=== PATIENT | male | born 1955 | race Asian ===

== ENCOUNTER → 2021-10-12 | Emergency (ER) | payer BC, OTHER ==
[~2021-10-12] VITALS: Ht 170.2 cm; Wt 63.5 kg
[~2021-10-12] MED LIST: MONT10TA22 PO
[2021-10-12 17:08] VITALS: BP_SYST 114
== END | disposition home or self-care (01) ==
LOC: SED 17:00
DX: R07.9 Chest pain, unspecified (principal); Z53.21 Procedure and treatment not carried out due to patient leaving prior to being seen by health care provider

== ENCOUNTER 2021-10-18 11:10 | Emergency (ER) | payer OTHER ==
[~2021-10-18] VITALS: Ht 170.2 cm; Wt 63.5 kg
[2021-10-18 11:16] VITALS: BP_SYST 127
--- NOTE | 2021-10-18 13:34 | NUR ---
Patient left without being seen.
== END 2021-10-18 13:34 | disposition left against medical advice (07) ==
LOC: SED 11:10
DX: R06.02 Shortness of breath (principal); Z53.21 Procedure and treatment not carried out due to patient leaving prior to being seen by health care provider

== ENCOUNTER 2022-05-07 22:15 | Emergency (ER) | payer OTHER, MEDICARE ==
[~2022-05-07] VITALS: Ht 170.2 cm; Wt 59.4 kg
[~2022-05-07 22:15] MED LIST changes: +MONT-47 PO; -MONT10TA22 PO
[2022-05-07 22:34] VITALS: BP_SYST 155
--- NOTE | 2022-05-07 22:34 | NUR ---
Triaged and placed patient back to the waiting room. No acute respiratory distress at this time. VSS. Informed patient to notify ED staff for any changes in condition or worsening of symptoms while waiting to be seen by a provider. Patient verbalized understanding.
--- NOTE | 2022-05-07 23:24 | NUR ---
Patient placed in ER Bed 1 for evaluation. Bed in lowest position with side rails up. Instructed to notify ED staff for any changes in condition or worsening of symptoms. Patient verbalized understanding.
--- NOTE | 2022-05-08 00:05 | NUR ---
FIRST CONTACT WIT PT. ASSESSMENT COMPLETED. AWAITING ADDITIONAL EVAL AND ORDERS.
[2022-05-08] MEDS ORDERED: LIDOCAINE PATCH 5% 1 EA TP ONE (00:15)
[2022-05-08] MEDS ORDERED: KETOROLAC TROMETHAMINE 30 MG VIAL IM ONE (00:15)
--- NOTE | 2022-05-08 00:45 | NUR ---
AT BEDSIDE TO DISCUSS DISCHARGW PLANS.
[2022-05-08] MEDS ORDERED: LIDO1ADH22 TP (00:54)
[2022-05-08] MEDS ORDERED: NAPR-688 PO (00:54)
[2022-05-08 01:27] VITALS: BP_SYST 130
--- NOTE | 2022-05-08 01:30 | NUR ---
Patient given written and verbal discharge instructions and verbalizes understanding. ER MD COUGHLIN discussed with patient the results and treatment provided. Patient in stable condition. ID arm band removed. Rx of LIDOCAINE PATCH AND NAPROXENgiven. Patient educated on pain management and to follow up with PMD. Pain Scale 2. Opportunity for questions provided and answered. Medication side effect fact sheet provided.
== END 2022-05-08 01:30 | disposition home or self-care (01) ==
LOC: SED 22:15
DX: S29.012A Strain of muscle and tendon of back wall of thorax, initial encounter (principal); S46.811A Strain of other muscles, fascia and tendons at shoulder and upper arm level, right arm, initial encounter; J45.909 Unspecified asthma, uncomplicated; I10 Essential (primary) hypertension; Z88.0 Allergy status to penicillin; Z79.899 Other long term (current) drug therapy; X58.XXXA Exposure to other specified factors, initial encounter; Y93.89 Activity, other specified; Y92.89 Other specified places as the place of occurrence of the external cause; Y99.8 Other external cause status
CPT/HCPCS: 99283; 71046; 93005; 96372; J1885

== ENCOUNTER 2022-12-18 11:35 | Inpatient (IN) | payer OTHER, MEDICARE ==
[~2022-12-18] VITALS: Ht 165.1 cm; Wt 68.0 kg
[2022-12-18 11:35] VITALS: BP_SYST 161; PULSE 52; RESP 20; TEMP 98.5; O2SAT 100
[~2022-12-18 11:35] MED LIST changes: +LIDO1ADH22 TP; +NAPR-688 PO
[2022-12-18] MEDS ORDERED: IPRATROPIUM BROM 0.5 MG/2.5 ML VIAL.NEB (ATROVENT) INH ONE ×2 (12:00→12:02)
[2022-12-18] MEDS ORDERED: ALBUTEROL SULFATE 0.083% 2.5 MG/3 ML VIAL.NEB INH ONE ×2 (12:00→12:01)
[2022-12-18 12:18] LABS: BASOPHILS % (AUTO) 0.8 % (0.0-2.0); EOSINOPHILS # (AUTO) 0.2 K/uL (0.0-0.4); EOSINOPHILS % (AUTO) 2.7 % (0.0-4.0); HEMATOCRIT 38.6 % (36-54); HEMOGLOBIN 13.1 g/dL (14.0-18.0); LYMPHOCYTES # (AUTO) 1.1 K/uL (1.0-5.5); LYMPHOCYTES % (AUTO) 19.2 % (20.5-51.5); MEAN CORPUSCULAR HEMOGLOBIN 32 pg (27-31); MEAN CORPUSCULAR HGB CONC 34 % (32-36); MEAN CORPUSCULAR VOLUME 95 fL (79.0-98.0); MONOCYTES # (AUTO) 0.5 K/uL (0.0-1.0); MONOCYTES % (AUTO) 9.1 % (1.7-9.3); NEUTROPHILS # (AUTO) 3.9 K/uL (1.8-7.7); NEUTROPHILS % (AUTO) 68.2 % (40.0-70.0); PLATELET COUNT (AUTO) 200 K/uL (130-430); RED BLOOD CELL COUNT(AUTO) 4.08 MIL/uL (4.2-6.2); RED CELL DISTRIBUTION WIDTH 13.3 % (9.0-15.0); WHITE BLOOD COUNT (AUTO) 5.7 K/uL (4.8-10.8)
[2022-12-18 12:33] LABS: ANION GAP 7 (5-15); CALCIUM 8.7 mg/dL (8.4-11.0); CARBON DIOXIDE 28 mmol/L (23-29); CHLORIDE 104 mmol/L (98-107); CREATININE 1.06 mg/dL (0.55-1.30); GFR AFRICAN AMERICAN 89 mL/min (>90); GLUCOSE 100 mg/dL (74-106); POTASSIUM 3.8 mmol/L (3.5-5.1); SODIUM SERUM 139 mmol/L (136-145); UREA NITROGEN, BLOOD 21 mg/dL (8-21)
[2022-12-18 12:56] LABS: GFR NON AFRICAN-AMERICAN 74 mL/min (>90)
[2022-12-18 12:58] LABS: ALANINE AMINOTRANSFERASE 17 U/L (12-78); ALBUMIN 3.3 g/dL (3.4-4.8); ASPARTATE AMINOTRANSFERASE 18 U/L (10-37); TOTAL BILIRUBIN 0.6 mg/dL (0.0-1.0); TOTAL PROTEIN, SERUM 6.5 g/dL (6.4-8.3)
[2022-12-18] MEDS ORDERED: HYDROcodone/ACETAMIN 7.5-325 MG TAB PO ONE (13:00)
[2022-12-18] MEDS ORDERED: ASPIRIN 81 MG TABLET(ECOTRIN) PO ONE (13:15)
[2022-12-18 13:27] LABS: COVID19 ANTIGEN SOFIA FIA NEGATIVE (NEGATIVE)
[2022-12-18 13:28] LABS: INFLUENZA TYPE A Negative (NEGATIVE); INFLUENZA TYPE B POSITIVE (NEGATIVE)
[2022-12-18] MEDS ORDERED: IPRATROPIUM/ALBUTEROL SULFATE 3 ML AMPUL.NEB (DUONEB) INH ONE (14:00)
[2022-12-18] MEDS ORDERED: methylPREDNISolone SOD SUCC/PF 62.5 MG/ML VIAL IVP SCH (15:00)
[2022-12-18 15:11] LABS: THYROID STIMULATING HORMONE 0.79 uIu/mL (0.34-4.82)
[2022-12-18] MEDS ORDERED: TRAZ-250 PO (15:43)
[2022-12-18] MEDS ORDERED: AMLO2.5T50 PO (15:43)
[2022-12-18] MEDS ORDERED: BETHANECHOL (15:43)
[2022-12-18] MEDS ORDERED: LOSA50TA28 PO (15:51)
[2022-12-18] MEDS ORDERED: ATOR10TA68 PO (15:51)
[2022-12-18] MEDS ORDERED: DUTA0.5C PO (15:53)
[2022-12-18 16:58] VITALS: BP_SYST 169; PULSE 85; RESP 16; TEMP 97.8; O2SAT 95
[2022-12-18] MEDS ORDERED: HYDROcodone/ACETAMIN 5-325 MG TAB (NORCO/ VICODIN) PO PRN (17:15)
== END 2022-12-18 17:30 | disposition left against medical advice (07) | DRG 282 ==
LOC: SED 11:35 → STU 13:19
PROVIDERS: ADMIT Internal Medicine; ATTEND Internal Medicine
DX: I21.4 Non-ST elevation (NSTEMI) myocardial infarction (principal); I10 Essential (primary) hypertension; Z20.822 Contact with and (suspected) exposure to COVID-19; J45.909 Unspecified asthma, uncomplicated; Z88.0 Allergy status to penicillin; J10.1 Influenza due to other identified influenza virus with other respiratory manifestations
CPT/HCPCS: 36415; 71045; 80053; 80061; 83605; 83880; 84443; 84484; 85025; 93005; 94640; 96374; 99285; G0378; J2930